=== PATIENT | female | born 1990 | race African-American/Black ===

== ENCOUNTER 2018-06-20 03:04 | Emergency (ER) | payer SELFPAY ==
[~2018-06-20] VITALS: Ht 154.9 cm; Wt 82.9 kg
[2018-06-20] MEDS ORDERED: IBU600 MG PO (03:38)
[2018-06-20 06:00] VITALS: BP 101/70
[2018-06-20 06:01] LABS: CHLORIDE 107 mEq/L (99-109); POTASSIUM 3.7 mEq/L (3.7-5.4); SODIUM 136 mEq/L (136-147)
[2018-06-20 06:02] LABS: HEMATOCRIT 36.3 % (36.0-46.0); HEMOGLOBIN 12.1 G/DL (11.9-15.5); MCH 27.6 PG (29.0-34.0); MCHC 33.3 G/DL (30.0-36.0); MCV 82.9 FL (83-99); RBC DIS.WIDTH-CV 13.6 % (11.8-14.6); RBC DIS.WIDTH-SD 41.4 % (39-53); RED BLOOD COUNT 4.38 M/uL (3.80-5.20)
[2018-06-20 06:03] LABS: GLUCOSE 114 mg/dL (70-99)
[2018-06-20 06:07] LABS: CREATININE 0.7 mg/dL (0.6-1.3); GFR ESTIMATE (CALCULATED) > 59 mL/min/; UREA NITROGEN (BUN) 8 mg/dL (9-23)
[2018-06-20 07:21] LABS: HEMATOLOGY COMMENT 1 SMEAR COMPATIBLE; PLAT.SUFFICIENCY ADEQUATE; PLATELET COUNT 167 K/uL (156-360)
== END 2018-06-20 04:04 | disposition home or self-care (01) ==
LOC: EME 03:04
PROVIDERS: Emergency Medicine
DX: K08.89 Other specified disorders of teeth and supporting structures (principal); R94.31 Abnormal electrocardiogram [ECG] [EKG]
CPT/HCPCS: 80048; 82948; 85027; 93005; 99281; 99284; J1885